=== PATIENT | male | born 1935 | race Caucasian/White ===

== ENCOUNTER → 2017-04-06 | Day surgery (SDC) | payer OTHER, MEDICARE ==
[2017-03-28 11:07] VITALS: Ht 172.7 cm; Wt 79.5 kg
[~2017-04-06] VITALS: Ht 172.7 cm; Wt 79.5 kg
[~2017-04-06] MED LIST: ALLO100T PO; AMOX500C3 PO; ASPCH81X PO; ATOR10TA82 PO; FEXO1TAB49 PO; LEVE500T14 PO; LIDOCAINE HCL 2% 2 ML VIAL (20MG/ML) ONE; METO25TA56 PO; MISCTAB PO; MRLP17X PO; PROPOFOL IV EMULSION 10 MG/ML 20 ML VIAL IV ONE; PSYL58.636 PO; RANI150T3 PO; TIMO1SOL6 OPB
[2017-04-06 08:47] VITALS: TEMP 36.3
--- NOTE | 2017-04-06 09:15 | Endo History and Physical ---
History & Physical Date of Service: Apr 06, 2017. Chief Complaint: Hx of cirrhosis, Hx of colon polyp Referring Physician: Dr Martell History of Present Illness H/o cirrhosis - variceal screen H/o colon polyp - cscopy Past Medical History Arthritis, Cancer, High Cholesterol, Heart Disease, Hypertension, Liver Disease , Other Past Surgical History Hx Cardiac Surgery: Yes (AVR AND CABG X 2 VESSELS, HEART CATH/NO STENTS) Hx Internal Defibrillator: No Hx Pacemaker: No Hx Abdominal Surgery: No Hx of Implantable Prosthesis: No Hx Post-Op Nausea and Vomiting: No Hx Cancer Surgery: Yes (LEFT ORCHIECTOMY) Hx Thoracic Surgery: No Hx Orthopedic: No (LUMBAR FUSION L4-5) Hx Urinary Tract Surgery: No Family History None Social History Smoking Status: Former Smoker Hx Substance Use: No Hx Alcohol Use: No Allergies Coded Allergies: NO KNOWN DRUG ALLERGIES (Verified Allergy, Unknown, ., 04/06/17) POLLEN (Verified Allergy, Unknown, SNEEZING, 04/06/17) Current Medications Reported Home Medications Medications Dose Route/Sig Max Daily Dose Days Date Category Dose Instructions Keppra Xr (Levetiracetam) 500 Mg Tab 500 Mg PO BID 03/28/17 Reported Metamucil Fiber (Psyllium) 51.7 % Florian 1 Dose PO BID PRN 03/28/17 Reported Osteo Bi-Flex [facility] ([facility]) 1 Tab Tab 1 Tab PO BID 03/28/17 Reported WITH VITAMIN D Betimol 0.25% Oph (Timolol Hemihydrate 0.25% Oph) 0.25 % Michelle 1 Drop OPB BID 03/28/17 Reported Aspirin Chewable (Aspirin) 81 Mg Chew 81 Mg PO BID 03/28/17 Reported Makenna Allergy (Fexofenadine Hcl) 180 Mg Tab 1 Tab PO DAILY PRN 14 03/28/17 Reported Amoxil (Amoxicillin) 500 Mg Cap 500 Mg PO DIRECTED PRN 03/28/17 Reported Miralax (Polyethylene) 17 Gm Pow 1 Dose PO DAILY PRN 03/28/17 Reported Zantac (Ranitidine HCl) 150 Mg Tab 150 Mg PO DAILY PRN 03/28/17 Reported Zyloprim (Allopurinol) 100 Mg Tab 100 Mg PO BID 03/28/17 Reported Lopressor (Metoprolol Tartrate) 25 Mg Tab 12.5 Mg PO BID 02/17/15 Reported Lipitor (Atorvastatin Calcium) 10 Mg Tab 10 Mg PO QAM 12/04/14 Reported Vital Signs Weight (Kilograms): 79.55 Height (Feet): 5 Height (Inches): 8 Date Time Temp Pulse Resp B/P (MAP) Pulse Ox O2 Delivery O2 Flow Rate FiO2 04/06/17 08:47 36.3 65 20 156/86 (109) 65 Room Air Physical Exam General Appearance: no apparent distress Respiratory/Chest: Auscultation: breath sounds normal Cardiovascular: Heart Auscultation: RRR Abdomen: Inspection & Palpation: soft Assessment and Plan EGD, cscopy
--- NOTE | 2017-04-06 10:05 | GI REPORT ---
Procedure Date: 04/06/2017 8:52 AM Procedure: Upper GI endoscopy Indications: Cirrhosis rule out esophageal varices Medicines: See the Anesthesia note for documentation of the administered medications Complications: No immediate complications. Estimated Blood Loss: Estimated blood loss: none. Procedure: Pre-Anesthesia Assessment: - ASA Grade Assessment: III - A patient with severe systemic disease. After obtaining informed consent, the endoscope was passed under direct vision. Throughout the procedure, the patient's blood pressure, pulse, and oxygen saturations were monitored continuously. The scope was introduced through the mouth, and advanced to the second part of duodenum. The upper GI endoscopy was accomplished without difficulty. The patient tolerated the procedure well. Findings: The examined esophagus was normal. Mosaic pattern to mucosa in body and fundus of stomach without bleeding or bulging red spots, consistent with mild portal gastropathy. The antrum was normal. There was moderate patchy erythema in the duodenal bulb, consistent with duodenitis. The remainder of the duodenum was normal. Impression: Mild portal gastropathy, otherwise normal exam. Recommendation: - Discharge patient to home. Ciera Ambrocio M.D. Ciera Ambrocio MD 04/06/2017 10:05:15 AM This report has been signed electronically. Note Initiated On: 04/06/2017 8:52 AM I attest to the content of the Intraoperative Record and orders documented therein, exceptions below
--- NOTE | 2017-04-06 10:07 | GI REPORT ---
Procedure Date: 04/06/2017 9:28 AM Procedure: Colonoscopy Indications: High risk colon cancer surveillance: Personal history of colonic polyps Medicines: See the Anesthesia note for documentation of the administered medications Complications: No immediate complications. Estimated Blood Loss: Estimated blood loss: none. Procedure: Pre-Anesthesia Assessment: - ASA Grade Assessment: III - A patient with severe systemic disease. After I obtained informed consent, the scope was passed under direct vision. Throughout the procedure, the patient's blood pressure, pulse, and oxygen saturations were monitored continuously. The scope was introduced through the anus and advanced to the cecum, identified by appendiceal orifice and ileocecal valve. The colonoscopy was performed without difficulty. The patient tolerated the procedure well. The quality of the bowel preparation was good. Findings: The perianal and digital rectal examinations were normal. Multiple small and large-mouthed diverticula were found in the sigmoid colon. A 4 mm polyp was found in the sigmoid colon. The polyp was sessile. The polyp was removed with a cold snare. Resection and retrieval were complete. The exam was otherwise without abnormality. Impression: - Diverticulosis in the sigmoid colon. - One 4 mm polyp in the sigmoid colon, removed with a cold snare. Resected and retrieved. - The examination was otherwise normal. Recommendation: - Discharge patient to home. Given age, would not pursue further CRC screening. Ciera Ambrocio M.D. Ciera Ambrocio MD 04/06/2017 10:06:58 AM This report has been signed electronically. Note Initiated On: 04/06/2017 9:28 AM I attest to the content of the Intraoperative Record and orders documented therein, exceptions below
--- NOTE | 2017-04-06 10:12 | Discharge Instructions ---
Endoscopy Patient Instructions Date / Procedure(s) Performed Apr 06, 2017. Colonoscopy, EGD Allergy Information Coded Allergies: NO KNOWN DRUG ALLERGIES (Verified Allergy, Unknown, ., 04/06/17) POLLEN (Verified Allergy, Unknown, SNEEZING, 04/06/17) Discharge Date / Findings Apr 06, 2017. Portal gastropathy Diverticulosis, sigmoid polyp Provider Instructions Activity Restrictions - No exercising or heavy lifting for 24 hours. - Do not drink alcohol the day of the procedure. - Do not drive a car or operate machinery until the day after the procedure. - Do not make any important decisions or sign important papers in 24 hours after the procedure. Following Day: - Return to full activity which may include returning to work/school. Diet Start your diet with liquids and light foods (jello, soup, juice, toast). Then eat your usual diet if not nauseated. Treatment For Common After Affects For mild abdominal pain, bloating, or excessive gas: - Rest - Eat lightly - Lie on right side Follow-Up Information Follow-up with Dr Martell as scheduled Anesthesia Information What You Should Know You have had a procedure that required some medicine to reduce anxiety and discomfort. This treatment is called moderate sedation. After receiving the treatment, you may be sleepy, but you will be able to breathe on your own. The effects of the treatment may last for several hours. Follow these instructions along with Activity/Diet recommendations noted above: * Do NOT do anything where dizziness or clumsiness would be dangerous. * Rest quietly at home today, then you can be up and about tomorrow. * Have a responsible person stay with you the rest of today. * You may have had an I.V. today. If so, you may take the dressing off later today. Recommendations Call your doctor if: * Trouble breathing * Continuous vomiting for more than 24 hours * Temperature above 101 degrees * Severe abdominal pain or bloating * Pain not relieved by pain medicine ordered * There is increased drainage or redness from any incision * A large amount of rectal bleeding greater than 2-3 tablespoons. (If you had a polyp/s removed or have hemorrhoids, a small amount of blood - from the rectum is to be expected.) * You have any unanswered questions or concerns. IN THE EVENT OF A SERIOUS EMERGENCY, GO TO THE NEAREST EMERGENCY ROOM Your discharge instructions were prepared by provider Ciera Arboleda. Patient Instructions Signature Page Kian Gregory Patient (or Guardian) Signature/Date: I have read and understand the instructions given to me by my caregivers. Caregiver/RN/Doctor Signature/Date: The above-named patient and/or guardian has received patient instructions on this date. + Original Patient Signature Page (only) stays with chart. Please make copy for patient.
--- NOTE | 2017-04-06 10:15 | Anesthesiology Progress Note ---
Anesthesia Post Op Note Date & Time Apr 06, 2017 at 10:15 Vital Signs Vital Signs Past 12 Hours Date Time Temp Pulse Resp B/P (MAP) Pulse Ox O2 Delivery O2 Flow Rate FiO2 04/06/17 10:09 63 16 137/79 (98) 100 Room Air 04/06/17 09:54 62 16 125/76 (92) 100 Room Air 04/06/17 08:47 36.3 65 20 156/86 (109) 65 Room Air Notes Mental Status: alert / awake / arousable, participated in evaluation Pt Amnestic to Procedure: Yes Nausea / Vomiting: adequately controlled Pain: adequately controlled Airway Patency, RR, SpO2: stable & adequate BP & HR: stable & adequate Hydration State: stable & adequate Anesthetic Complications: no major complications apparent
[2017-04-06 10:24] VITALS: BP 132/84; PULSE 57; O2SAT 98
== END | disposition home or self-care (01) ==
LOC: C.GI 08:10
PROVIDERS: ATTEND Internal Medicine Gastroenterology
DX: Z12.11 Encounter for screening for malignant neoplasm of colon (principal); D12.5 Benign neoplasm of sigmoid colon; K57.30 Diverticulosis of large intestine without perforation or abscess without bleeding; Z86.010 Personal history of colon polyps; K74.60 Unspecified cirrhosis of liver; M19.90 Unspecified osteoarthritis, unspecified site; E78.00 Pure hypercholesterolemia, unspecified; I10 Essential (primary) hypertension; Z95.1 Presence of aortocoronary bypass graft; Z87.891 Personal history of nicotine dependence; Z79.899 Other long term (current) drug therapy; Z79.82 Long term (current) use of aspirin

== ENCOUNTER 2018-06-04 23:58 | Inpatient (IN) ==
[2018-06-05] MEDS ORDERED: SODIUM CHLORIDE 0.9% 1000ML 1,000 ML IV ONE (00:15)
[2018-06-05] MEDS ORDERED: ONDANSETRON INJ 2 MG/ML 2 ML VIAL IV STA (00:15)
[2018-06-05] MEDS ORDERED: MoRPHine SULFATE 10 MG/ML CARP/VIAL IV STA (00:15)
[2018-06-05 00:43] LABS: Basophils # (auto) 0.03 K/uL (0-0.2); Basophils % (auto) 0.4 %; Eosinophils # (auto) 0.09 K/uL (0-0.5); Eosinophils % (auto) 1.1 %; Hematocrit (blood only) 44.3 % (42-52); Hemoglobin 15.7 g/dL (14.0-18.0); Immature Granulocytes # (auto) 0.01 K/uL (0.00-0.02); Immature Granulocytes % (auto) 0.1 %; Lymphocytes # (auto) 0.97 K/uL (1.2-3.4); Lymphocytes % (auto) 11.7 %; Mean Corpuscular Hgb Conc 35.4 g/dL (32-36); Mean Corpuscular Volume 97.4 fL (80-100); Mean Platelet Volume 10.5 fL (7.4-10.4); Monocytes % (auto) 7.2 %; Neutrophils % (auto) 79.5 %; Platelet Count 125 K/uL (130-400); RDW Coefficient of Variation 13.2 % (11.5-14.5); RDW Standard Deviation 46.5 fL (36.4-46.3); Red Blood Count 4.55 M/uL (4.7-6.1)
[2018-06-05 00:59] LABS: Albumin Level 4.4 gm/dl (3.4-5.0); BUN Creatinine Ratio 17.2 (10-20); Bilirubin Direct 0.2 mg/dl (0-0.2); Calcium 9.6 mg/dl (8.5-10.1); Creatinine Clr Calc Pharmacy 37.7 ml/min; Est GFR (African American) 51.9; Est GFR (Non-African American) 44.8
[2018-06-05 01:02] LABS: Total Protein 8.4 gm/dl (6.4-8.2)
--- NOTE | 2018-06-05 01:54 | Emergency Department Note ---
Entered by Sushant Knowles acting as a scribe for ED Provider Note CC: Generalized abdominal pain HPI: 82 y/o male arrives for evaluation of constant abdominal pain beginning a few days ago via triage. The patient states he has a history of several bowel obstructions, and he does not know what has caused them. He reports he experienced diarrhea last week that has resolved to small bowel movements. The patient notes he vomited this evening and he now has moderate pain to his abdomen. He states his pain is generalized. The patient reports he was not able to eat a lot today. He notes a history of hemochromatosis and follows up with Dr. Ambrocio. The patient states his PCP is Dr. Martell. He denies chest pain, SOB, LOC, falls, injuries, taking medication for his symptoms, and leg swelling. ROS: See above HPI for pertinent positives & negatives. A total of 10 systems reviewed and were otherwise negative. Past Medical History:, Hemochromatosis, Bowel obstruction, GERD, CAD, HTN Past Surgical History: CABGx2, orchiectomy, Family History: Noncontributory Social History: Former smoker Home Medications: Aspirin, Keppra, Zantac Allergies: NKDA Physical: Vitals: Normal Exam: GENERAL: Patient is uncomfortable and nauseous appearing and in moderate distress. EYES: No scleral icterus, unremarkable pupils. ENT: Mucous membranes moist, no nasal congestion. NECK: No masses appreciated, no meningismus, trachea is midline. RESPIRATORY: No dyspnea. Clear to auscultation and equal bilaterally. No wheeze, no rhonchi. CARDIOVASCULAR: Regular rate and rhythm. No murmurs, rubs, gallops appreciated. GASTROINTESTINAL: Abdomen soft, distended, tenderness to palpation throughout with no signs of peritonitis appreciated. Bowel sounds hyperactive in the LLQ. No masses appreciated. BACK: No midline tenderness, no CVA tenderness EXTREMITIES: Normal motion all extremities, no cyanosis, no edema. NEUROLOGIC: Alert and oriented, no acute motor or sensory deficits, no focal weakness, cranial nerves grossly intact. SKIN: No rash, no jaundice, no diaphoresis. ED Course: 0011: Past medical records reviewed. The patient was evaluated in room A11B, and a complete history and physical examination were performed. 0130: I reevaluated the patient. He is still nauseous. I paged Dr. Man, General Surgery. 0141: I discussed the patient's case with Dr. Man, General Surgery. He agreed with the placement of an EG tub and a medical admit. 0150: I reviewed the patient's case with Dr. Escalante, [facility] Hospitalist. He will evaluate the patient for further management. Prior Medical Record, Triage/Nursing Notes, Medications reviewed by Me Labs reviewed and remarkable for renal insufficiency and minor thrombocytopenia Vital Signs reviewed and remarkable for wnl Imaging: [facility] Radiologist interpretation reviewed by me: "CT ABDOMEN & PELVIS Without Contrast: Compared to 05/24/12 Small bowel obstruction with a transition point in the RLQ. Cholelithiasis. Distended urinary bladder. No hydronephrosis. Unremarkable appendix. Aortic valve replacement with ascending segment ectasia Radiologist: Charanjit Recinos M.D." EKG: none Consults: Dr. Man, General Surgery; Dr. Escalante, [facility] Hospitalist. Blood pressure: Unremarkable Disposition: Hospitalization Differentials: Differential diagnoses includes but is not limited to gastritis, peptic ulcer disease, GERD, gallbladder disease, pancreatitis, small bowel obstruction, acute coronary syndrome, pericarditis, ischemic bowel, irritable bowel disease, irritable bowel syndrome, appendicitis, diverticulitis, malignancy, hernia, urinary tract infection, torsion, perforation, trauma, infe ctious. Medical Decision Making: Pleasant 82 yr old male with worsening abdominal pain and no normal BM in last few days. Now with vomiting and worsening abdominal discomfort. Exam and history consistent with obstructions. No peritonitis by serial exams. CT with obstruction noted and NG tube placed with improvement. Gen Surg on board with plan to bring in to medicine for further monitoring/treatment. Lactic wnl and he does not exam like ischemic bowel. Impression: Small Bowel Obstruction Rupert Montejo MD The scribe's documentation has been prepared under my direction and personally reviewed by me in its entirety. I confirm that the note above accurately reflects all work, treatment, procedures, and medical decision making performed by me. 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 " Hemochromatosis (Chronic Unknown) GERD (gastroesophageal reflux disease) (Chronic) Aortic stenosis (Resolved) "s/p AVR 12/2014" CAD (coronary artery disease) (Chronic) "s/p CABG x 2" Dyslipidemia (Chronic) HTN (hypertension) (Chronic) CKD (chronic kidney disease) stage 3, GFR 30-59 ml/min (Chronic) Surgical History History of coronary artery bypass graft x 2 (Resolved) "12/2014" History of orchiectomy, unilateral (Resolved) "L side at age 36 secondary to cancer " Family History Other Family history non-contributory Social History Feels Safe at Home: Yes Smoking Status: Former smoker Results & Data Vital Signs Vital Signs - 24 hr 06/05/18 00:04 Sepsis Recent Fever Within 48 Hours No Sepsis New/Unexplained Change in Mental Status No Sepsis Action Taken by Nursing No Action Required Pulse Rate 77 Pulse Rhythm Regular Pulse Strength Normal Respiratory Rate 19 Respiratory Effort / Characteristics Non-Labored Spontaneous Respiratory Depth Normal Respiratory Pattern Regular Blood Pressure 113/75 Blood Pressure Mean 87 Blood Pressure Position Sitting Pulse Oximetry 98 Oxygen Delivery Method Room Air Home Medications Current Medication List: was personally reviewed by me Laboratory Data Attestation: I reviewed the patient's lab results. Result diagrams: 06/05/18 00:30 06/05/18 00:30 Lab Results 06/05/18 06/05/18 06/05/18 Range/Units 00:30 00:30 00:30 WBC 8.30 (4.8-10.8) K/uL RBC 4.55 L (4.7-6.1) M/uL Hgb 15.7 (14.0-18.0) g/dL Hct 44.3 (42-52) % MCV 97.4 (80-100) fL MCH 34.5 H (25-34) pg MCHC 35.4 (32-36) g/dL RDW Std Deviation 46.5 H (36.4-46.3) fL RDW Coeff of Florin 13.2 (11.5-14.5) % Plt Count 125 L (130-400) K/uL MPV 10.5 H (7.4-10.4) fL Immature Gran % (Auto) 0.1 % Neut % (Auto) 79.5 % Lymph % (Auto) 11.7 % Kittson % (Auto) 7.2 % Eos % (Auto) 1.1 % Baso % (Auto) 0.4 % Immature Gran # (Auto) 0.01 (0.00-0.02) K/uL Neut # (Auto) 6.60 H (1.4-6.5) K/uL Lymph # (Auto) 0.97 L (1.2-3.4) K/uL Kittson # (Auto) 0.60 H (0.11-0.59) K/uL Eos # (Auto) 0.09 (0-0.5) K/uL Baso # (Auto) 0.03 (0-0.2) K/uL Sodium 137 (136-145) mmol/L Potassium 4.0 (3.5-5.1) mmol/L Chloride 101 (98-107) mmol/L Carbon Dioxide 30 (21-32) mmol/L Anion Gap 6.0 (3-11) BUN 25 H (7-18) mg/dl Creatinine 1.46 H (0.6-1.4) mg/dl Est Cr Clr Drug Dosing 37.7 ml/min Est GFR ( Amer) 51.9 Est GFR (Non-Af Amer) 44.8 BUN/Creatinine Ratio 17.2 (10-20) Glucose 169 H (70-99) mg/dl Lactate 1.7 (0.4-2.0) mmol/L Calcium 9.6 (8.5-10.1) mg/dl Total Bilirubin 1.0 (0.2-1) mg/dl Direct Bilirubin 0.2 (0-0.2) mg/dl AST 24 (15-37) U/L ALT 30 (12-78) U/L Alkaline Phosphatase 95 (45-117) U/L Total Protein 8.4 H (6.4-8.2) gm/dl Albumin 4.4 (3.4-5.0) gm/dl Lipase 47 L (73-393) U/L Administered Medications Discontinued Medications Sodium Chloride (Nss 1000ml) 1,000 mls @ 999 mls/hr IV .Q1H1M ONE Stop: 06/05/18 01:15 Last Infusion: 03/20/19 01:57 Dose: 0 mls/hr Documented by: [id number] Admin: 06/05/18 00:28 Dose: 999 mls/hr Documented by: [id number] Morphine Sulfate (Morphine Sulfate) 6 mg IV NOW STA Stop: 06/05/18 00:16 Last Admin: 06/05/18 00:28 Dose: 6 mg Documented by: [id number] Ondansetron HCl (Zofran) 4 mg IV NOW STA Stop: 06/05/18 00:16 Last Admin: 06/05/18 00:27 Dose: 4 mg Documented by: [id number] Blood Pressure Blood Pressure Findings: Normal blood pressure Blood Pressure Disposition: did not require urgent referral Discharge Plan Visit Data Chief Complaint: Constipation Stated Complaint: BOWL OBS ED Provider: Rupert Montejo Discharge Problem: Small bowel obstruction Patient Disposition: Being Evaluated by Hospitalist Forms Stand Alone Forms: My [facility] Prescriptions Prescriptions: No Action atorvastatin 10 mg tablet 10 mg PO DAILY RF: 0 levetiracetam 500 mg tablet 500 mg PO BID RF: 0 allopurinol 100 mg tablet 100 mg PO BID RF: 0 aspirin 81 mg Tablet,Delayed Release (Dr/Ec) 81 mg PO BID RF: 0 metoprolol tartrate 25 mg tablet 12.5 mg PO Q12 RF: 0 timolol maleate 0.25 % drops 1 drp OPB BID RF: 0 ranitidine HCl 150 mg tablet 150 mg PO DAILY RF: 0 amoxicillin 500 mg capsule 2,000 mg PO UD PRN (Reason: Prophylaxis) RF: 0 fexofenadine [Makenna Allergy] 180 mg Tablet 180 mg PO DAILY RF: 0 polyethylene glycol 3350 [Miralax] 17 gram/dose Powder 17 g PO DAILY PRN (Reason: Constipation) RF: 0 glucosamine-chondroitin [Osteo Bi-Flex] 250-200 mg Tablet 2 tab PO DAILY RF: 0 Referrals Referrals: Jim Martell [Primary Care Provider] - The scribe's documentation has been prepared under my direction and personally reviewed by me in its entirety. I confirm that the note above accurately reflects all work, treatment, procedures, and medical decision making performed by me.
[2018-06-05] MEDS ORDERED: ACETAMINOPHEN 325 MG TAB PO PRN (05:14)
[2018-06-05] MEDS ORDERED: HYDROmorphone INJ 0.5 MG/0.5 ML SYR IV PRN (05:14)
[2018-06-05] MEDS ORDERED: ONDANSETRON INJ 2 MG/ML 2 ML VIAL IV PRN (05:14)
[2018-06-05] MEDS: D5W AND NSS 1,000 ML IV SCH ×3 (05:40→21:42)
--- NOTE | 2018-06-05 06:19 | History and Physical Report ---
DATE OF ADMISSION: 06/05/2018 CHIEF COMPLAINT: Abdominal pain, nausea and vomiting. HISTORY OF PRESENT ILLNESS: This is an 82-year-old male with past medical history significant for hemochromatosis s/p phlebectomy about 6 months ago, hyperlipidemia, hyperuricemia, aortic wall stenosis, CAD, hypertension, cirrhosis of liver, chronic kidney disease stage III, seizure disorder, chronic back pain, status post bioprosthetic aortic valve replacement, presents with abdominal pain, nausea started since last evening with several episodes of vomiting. Pain is moderate to severe in nature, no radiation, had a small bowel movement last evening No blood in the stools. Normal bladder movements. No burning micturition or hematuria. No chest pain, no shortness of breath, no cough, no fever, no chills, no headaches, no blurred vision, no runny nose, no sore throat. Lives with his . Ambulates okay. History of multiple small-bowel obstructions in the past. ALLERGIES: POLLEN. PAST MEDICAL HISTORY: As mentioned above. PAST SURGICAL HISTORY: CABG, colonoscopy, EGD with biopsies, endoscopic ultrasound, back surgery, sigmoidoscopy. MEDICATIONS: The patient is on amoxicillin prior to dental work, Keppra 500 mg p.o. b.i.d., Lopressor 12.5 mg p.o. b.i.d., Lipitor 10 mg p.o. daily, allopurinol 100 mg p.o. b.i.d., Zantac 150 mg p.o. b.i.d. as needed, timolol 0.25% instill 1 drop both eyes b.i.d., MiraLax 17 g daily, Makenna 180 mg p.o. daily p.r.n., aspirin 81 mg p.o. b.i.d., Osteo Bi-Flex 1 tablet b.i.d. FAMILY HISTORY: Significant for father had lung cancer. Mother had ovarian cancer. SOCIAL HISTORY: and lives with his . Quit smoking in 1966. Smoked about 1 pack a day for 15 years. No alcohol use. No drug use. REVIEW OF SYMPTOMS: As per HPI. Rest of review of symptoms negative. PHYSICAL EXAMINATION: GENERAL: The patient is of moderate built, not in acute distress. VITAL SIGNS: Temperature is afebrile, pulse 77, respiratory 19, blood pressure 113/75, oxygen 98% on room air. HEENT: No pallor, no icterus. Pupils equal, round, and reactive to light. NECK: No JVD, no neck mass, no carotid bruit. CARDIOVASCULAR: S1, S2 heard, regular rate and rhythm, no murmur, no gallop. RESPIRATORY SYSTEM: Normal AP diameter. No accessory muscle use. No wheezing, no crackles. ABDOMEN: Soft, bowel sounds absent. Nontender. No distention. CENTRAL NERVOUS SYSTEM: Cranial nerves II-XII grossly intact. Nonfocal. EXTREMITIES: No edema, no erythema. LABS: WBC 8.3, hemoglobin 15.7, hematocrit 44.3, platelets 125. Sodium 137, potassium 4, chloride 101, bicarbonate 30, BUN 25, creatinine 1.4, serum glucose 169. Lactate 1.7, calcium 9.6, total bilirubin 1, direct bilirubin 0.2, AST 74, ALT 30, alkaline phosphatase 95, lipase 47. CT of the abdomen and pelvis, unofficial report small-bowel obstruction. ASSESSMENT AND PLAN: An 82-year-old male who presents with a small-bowel obstruction. 1. Small bowel obstruction. History of frequent small bowel obstruction in the past. We will keep him n.p.o. and nasogastric tube was placed in ER which will be continued. IV pain medication and IV antiemetics p.r.n., IV fluids, consult surgery for further recommendations. 2. History of gastroesophageal reflux disease. We will place him on IV Protonix for now. 3. History of coronary artery disease and aspirin, statin and Lopressor, which we will continue for now. Currently asymptomatic. 4. History of seizure disorder. We will place him on IV Keppra. 5. Hyperlipidemia, on statin. 6. Gout. On allopurinol. 6. Chronic kidney disease stage III, baseline creatinine of 1.3 to 1.5, presents with creatinine 1.4. Follow the labs. 7. Hypertension. On Lopressor. Monitor the blood pressure. 8 History of diastolic congestive heart failure, not on any diuretics. getting fluids. We will monitor for any volume overload. 9. Deep vein thrombosis prophylaxis, sequential compression devices for now. DISPOSITION: Closely monitor in the medical floor. Level I full code. MTDD
--- NOTE | 2018-06-05 06:47 | Progress Note ---
Date of Service June 05, 2018 Assessment & Plan (1) Small bowel obstruction: very stable- no acute surgical intrvention needed at this point- probably has scar tissue from radiation therapy for h/o testicular ca consider CT w/ contrast via NG depending on progress Subjective awake,alert- min pain some normal looking NG output Physical Exam Vital Signs (Past 24 Hours): Last Vital Signs Temp 36.5 C 06/05/18 05:00 Pulse 76 06/05/18 05:00 Resp 16 06/05/18 05:00 BP 153/84 H 06/05/18 05:00 Pulse Ox 95 06/05/18 05:00 abd- soft, min tenderness- some decreased bowel sounds
[2018-06-05 07:24] LABS: BUN Creatinine Ratio 19.5 (10-20); Calcium 8.7 mg/dl (8.5-10.1); Creatinine Clr Calc Pharmacy 40.8 ml/min; Est GFR (African American) 57.1; Est GFR (Non-African American) 49.2; Potassium 4.3 mmol/L (3.5-5.1)
--- NOTE | 2018-06-05 07:46 | CT Scan Report ---
ABDOMEN AND PELVIS CT WITHOUT CONTRAST CT DOSE: 1035.10 mGy.cm HISTORY: abdominal distension, pain, concern bowel obstruct TECHNIQUE: Multiaxial CT images of the abdomen and pelvis were performed without contrast. A dose lo wering technique was utilized adhering to the principles of ALARA. COMPARISON STUDY: Abdomen and pelvis CT 05/24/2012. FINDINGS: A few groundglass densities at the lung bases likely represent mild dependent change. 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 Mild aneurysmal dilatation of the ascendi ng thoracic aorta measuring 4.1 cm in diameter. No pneumoperitoneum. No pneumatosis. Posterior decomp ression and fusion within the lower lumbar spine. The unenhanced liver, spleen, adrenal glands, pancr eas, and right kidney are unremarkable. No hydronephrosis. A few small gallstones. A 1.3 cm exophytic hypodense lesion within the upper pole the left kidney. This is incompletely characterize on this no ncontrast study. The bladder is mildly distended. A few colonic diverticula. No evidence for divertic ulitis. Moderate well-formed stool seen within the distal colon. Normal appendix. Multiple dilated ga s and fluid-filled loops of proximal to mid small bowel with a transition point located within the ri ght lower quadrant on image 59. This is consistent with a small bowel obstruction. The small bowel is distended up to 3.6 cm. A transition point is likely located at the mid to distal ileum. IMPRESSION: 1. Small bowel obstruction with the transition point located within the right lower quadrant. 2. Cholelithiasis. 3. Distended bladder. 4. Mild aneurysmal dilatation of the ascending thoracic aorta measuring up to 4.1 cm in diameter. 5. Additional findings as described above. Electronically signed by: Jonny Johnson M.D. 06/05/2018 7:45 AM
[2018-06-05] MEDS: TIMOLOL MALEATE 0.25% OP SOLN 5 ML BTL OPB SCH ×2 (08:50→20:23)
[2018-06-05] MEDS: FEXOFENADINE HCL 180 MG TAB PO SCH (08:51)
[2018-06-05] MEDS: METOPROLOL TARTRATE 25 MG TAB PO SCH ×2 (08:51→20:23)
[2018-06-05] MEDS: ASPIRIN 81 MG ECTAB PO SCH ×2 (08:51→20:23)
[2018-06-05] MEDS: ATORVASTATIN 10 MG TAB PO SCH (08:51)
[2018-06-05] MEDS: ALLOPURINOL 100 MG TAB PO SCH ×2 (08:51→20:22)
[2018-06-05 13:24] LABS: Appearance Urine Clear (Clear); Bilirubin Urine Negative (Negative); Blood Urine Negative (Negative); Color Urine Yellow; Glucose Urine UA Negative (Negative); Ketones Urine Negative (Negative); Leukocyte Esterase Urine Negative (Negative); Nitrite Urine Negative (Negative); Protein Urine Negative (Negative); Specific Gravity Urine 1.022 (1.000-1.030); Urobilinogen Urine Negative (Negative)
--- NOTE | 2018-06-05 18:39 | Hospitalist Progress Note ---
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 (3) GERD (gastroesophageal reflux disease): cont PPI Subjective NG tube has minimum drainage no complain of abdominal pain or nausea appreciate input from surgery conservative management with supportive care -NG sunction /IVF Physical Exam Vital Signs (Past 24 Hours): Last Vital Signs Temp 36.4 C L 06/05/18 16:15 Pulse 69 06/05/18 16:15 Resp 18 06/05/18 16:15 BP 117/68 06/05/18 16:15 Pulse Ox 96 06/05/18 16:15 Physical Exam: GENERAL: No sign of distress, HEENT: Sclera nonicteric, pink-purple bilateral equal reactive to light extraocular muscle intact Normal oral mucosa, neck: No JVD, no thyromegaly, trachea midline Lungs: Clear to auscultate, no wheeze or rales Cardiovascular: Regular S1 and S2, no murmur or gallop, no JVD, no lower extremity edema Abdomen: Soft, nontender, bowel sounds active, no hepatosplenomegaly Extremities: No rash or deformity, normal joint, Neuro: No focal neurological deficit, no dysarthria, no facial droop Psych: Alert awake oriented x3: Euthymic Skin: No rash LYMPH NODES: No cervical lymphadenopathy
[2018-06-06] MEDS: D5W AND NSS 1,000 ML IV SCH ×2 (05:20→13:45)
[2018-06-06 06:22] LABS: Hematocrit (blood only) 37.1 % (42-52); Hemoglobin 12.4 g/dL (14.0-18.0); Mean Corpuscular Hgb Conc 33.4 g/dL (32-36); Mean Corpuscular Volume 100.3 fL (80-100); Mean Platelet Volume 10.2 fL (7.4-10.4); Platelet Count 92 K/uL (130-400); RDW Coefficient of Variation 13.4 % (11.5-14.5); RDW Standard Deviation 48.8 fL (36.4-46.3); White Blood Count 4.18 K/uL (4.8-10.8)
[2018-06-06 06:23] LABS: Basophils # (auto) 0.01 K/uL (0-0.2); Basophils % (auto) 0.2 %; Eosinophils # (auto) 0.08 K/uL (0-0.5); Eosinophils % (auto) 1.9 %; Immature Granulocytes # (auto) 0.01 K/uL (0.00-0.02); Immature Granulocytes % (auto) 0.2 %; Lymphocytes # (auto) 0.62 K/uL (1.2-3.4); Lymphocytes % (auto) 14.8 %; Monocytes # (auto) 0.59 K/uL (0.11-0.59); Monocytes % (auto) 14.1 %; Neutrophils # (auto) 2.87 K/uL (1.4-6.5); Neutrophils % (auto) 68.8 %; Platelet Estimate Decreased (Normal); RBC Morphology Unremarkable
[2018-06-06 06:24] LABS: BUN Creatinine Ratio 18.7 (10-20); Calcium 7.8 mg/dl (8.5-10.1); Creatinine Clr Calc Pharmacy 46.7 ml/min; Est GFR (African American) 67.1; Est GFR (Non-African American) 57.9; Magnesium 1.6 mg/dl (1.8-2.4); Potassium 3.7 mmol/L (3.5-5.1)
[2018-06-06] MEDS: TIMOLOL MALEATE 0.25% OP SOLN 5 ML BTL OPB SCH ×2 (08:47→21:39)
[2018-06-06] MEDS: METOPROLOL TARTRATE 25 MG TAB PO SCH ×2 (08:47→21:37)
[2018-06-06] MEDS: ATORVASTATIN 10 MG TAB PO SCH (08:47)
[2018-06-06] MEDS: ASPIRIN 81 MG ECTAB PO SCH ×2 (08:47→21:37)
[2018-06-06] MEDS: ALLOPURINOL 100 MG TAB PO SCH ×2 (08:47→21:37)
[2018-06-06] MEDS: FEXOFENADINE HCL 180 MG TAB PO SCH (08:48)
--- NOTE | 2018-06-06 09:16 | XRay Report ---
KUB HISTORY: Follow-up Small Bowel Obstruction COMPARISON: Abdomen and pelvis CT 06/05/2018. FINDINGS: Nasogastric tube turns in the proximal stomach. The fenestrated line is at the gastroesopha geal junction. This should be advanced by approximately 5 cm. L4-L5 posterior fusion is noted. Slight decompression of the mildly dilated gas-filled loops of small bowel to the upper abdomen. There is g as and stool remaining within the colon. No renal calculi. No ureteral calculi. No pneumoperitoneum or pneumatosis. IMPRESSION: Slight improvement in the partial small bowel obstruction pattern. However, this could be due to deco mpression from the interval placement of a nasogastric tube. The nasogastric tube terminates in the p roximal stomach and should be advanced by approximately 5 cm. Electronically signed by: Jonny Johnson M.D. 06/06/2018 9:15 AM
--- NOTE | 2018-06-06 09:22 | Surgery Progress Note ---
Date of Service June 06, 2018 Assessment & Plan (1) Small bowel obstruction: 06/06/2018 Pt seen and examined with Dr. Caceres. No need for surgical intervention at this time. NG tube in place. Pt has started passing flatus. Denies BM, unable to void on own. Will repeat KUB this AM, bladder scan (over 700 mL of urine), will place fajardo catheter. UA yesterday ok. Continue NG tube. 06/05/2018 very stable- no acute surgical intrvention needed at this point- probably has scar tissue from radiation therapy for h/o testicular ca consider CT w/ contrast via NG depending on progress Subjective Patient resting comfortably in bed, NG tube in place. Reports that he did start passing flatus. Denies BM. Physical Exam Vital Signs (Past 24 Hours): Last Vital Signs Temp 37 C 06/05/18 23:15 Pulse 73 06/06/18 07:50 Resp 16 06/06/18 07:50 BP 136/76 06/06/18 07:50 Pulse Ox 90 06/06/18 07:50 Gastrointestinal (Abdomen): Inspection/Auscultation: + abdomen distended (improving. )
--- NOTE | 2018-06-06 17:37 | Hospitalist Progress Note ---
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 Nancy Helm urology and Fredrick Boo, Galloway was discontinued after voiding trial Will discharge patient with Galloway catheter-be changed to leg bag during discharge Follow-up with urology Dr. Helm in office for voiding trial Present on Admission?: No (4) GERD (gastroesophageal reflux disease): cont PPI CODE STATUS: Full code Disposition: Possible discharge home tomorrow, will need home health visiting nurse referral for Galloway catheter management Subjective Tolerating clear diet well, ambulating in hallway, no complaint of abdominal pain, no nausea, able to have small bowel movements Physical Exam Vital Signs (Past 24 Hours): Last Vital Signs Temp 36.8 C 06/06/18 15:22 Pulse 80 06/06/18 15:22 Resp 17 06/06/18 15:22 BP 132/75 06/06/18 15:22 Pulse Ox 97 06/06/18 15:22 Physical Exam: GENERAL: No sign of distress, HEENT: Sclera nonicteric, pink-purple bilateral equal reactive to light extraocular muscle intact Normal oral mucosa, neck: No JVD, no thyromegaly, trachea midline Lungs: Clear to auscultate, no wheeze or rales Cardiovascular: Regular S1 and S2, no murmur or gallop, no JVD, no lower extremity edema Abdomen: Soft, nontender, bowel sounds active, Extremities: No rash or deformity, normal joint, Neuro: No focal neurological deficit, no dysarthria, no facial droop Psych: Alert awake oriented x3: Euthymic Skin: No rash LYMPH NODES: No cervical lymphadenopathy Gastrointestinal (Abdomen): Inspection/Auscultation: + abdomen distended (improving. ) (1) Malignant tumor of testis Descendance of testis: unspecified Laterality: unspecified laterality Qualified Code(s): C62.90 - Malignant neoplasm of unspecified testis, unspecified whether descended or undescended (2) GERD (gastroesophageal reflux disease) Esophagitis presence: esophagitis presence not specified Qualified Code(s): K21.9 - Gastro-esophageal reflux disease without esophagitis
[2018-06-06] MEDS: TAMSULOSIN HCL 0.4 MG CAP PO SCH (21:37)
--- NOTE | 2018-06-07 07:53 | Surgery Progress Note ---
Date of Service June 07, 2018 Assessment & Plan (1) Small bowel obstruction: improving, seen with Dr. Caceres will recheck KUB begin advancing diet, possibly regular diet later today home with Barron fajardo Dr. covering weekend Subjective increasing flatus, no nausea, tolerating clears, has tana Physical Exam Vital Signs (Past 24 Hours): Last Vital Signs Temp 37.1 C 06/07/18 07:48 Pulse 81 06/07/18 07:48 Resp 18 06/07/18 07:48 BP 96/59 L 06/07/18 07:48 Pulse Ox 93 06/07/18 07:48 Gastrointestinal (Abdomen): Inspection/Auscultation: + abdomen distended (slightly LUQ) Percussion/Palpation: abdomen soft; abdomen nontender
[2018-06-07] MEDS: FEXOFENADINE HCL 180 MG TAB PO SCH (09:28)
[2018-06-07] MEDS: ASPIRIN 81 MG ECTAB PO SCH ×2 (09:29→20:19)
[2018-06-07] MEDS: ALLOPURINOL 100 MG TAB PO SCH ×2 (09:30→20:19)
[2018-06-07] MEDS: ATORVASTATIN 10 MG TAB PO SCH (09:30)
[2018-06-07] MEDS: METOPROLOL TARTRATE 25 MG TAB PO SCH ×2 (09:30→20:21)
[2018-06-07] MEDS: TIMOLOL MALEATE 0.25% OP SOLN 5 ML BTL OPB SCH ×2 (09:31→20:22)
--- NOTE | 2018-06-07 09:59 | XRay Report ---
KUB HISTORY: Follow-up study in a patient with small bowel obstruction. SBO COMPARISON: CT abdomen and pelvis 06/05/2018, KUB 06/06/2018 FINDINGS: Status post removal of the previously noted enteric tube. Moderate [place] formed stool is noted about the transverse colon. Decreased small bowel distention. The bowel gas pattern appears nonobstructive on today's study. No urolith identified. Sternotomy wires are partially imaged. No pneumatosis or pn eumoperitoneum. Previously noted cholelithiasis is better seen on comparison. Postoperative changes o f the lower lumbar spine. Degenerative changes of the spine, pelvis and hips. IMPRESSION: 1. Status post removal of the enteric tube. Decreased small bowel distention with bowel gas pattern a ppearing nonobstructed. 2. Moderate formed stool about the transverse colon. 3. No pneumatosis or pneumoperitoneum identified. Electronically signed by: Neftaly Gonzales M.D. 06/07/2018 9:58 AM
--- NOTE | 2018-06-07 18:16 | Hospitalist Progress Note ---
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 Nancy Helm urology and Fredrick Boo, Galloway was discontinued after voiding trial Will discharge patient with Galloway catheter-be changed to leg bag during discharge Follow-up with urology Dr. Helm in office for voiding trial (4) GERD (gastroesophageal reflux disease): cont PPI CODE STATUS: Full code Disposition: Possible discharge home tomorrow, will need home health visiting nurse referral for Galloway catheter management Subjective diet advanced tolerating well Physical Exam Vital Signs (Past 24 Hours): Last Vital Signs Temp 37.4 C 06/07/18 14:58 Pulse 80 06/07/18 14:58 Resp 17 06/07/18 14:58 BP 115/63 06/07/18 14:58 Pulse Ox 90 06/07/18 14:58 Gastrointestinal (Abdomen): Inspection/Auscultation: + abdomen distended (improving. ) (1) Malignant tumor of testis Descendance of testis: unspecified Laterality: unspecified laterality Qualified Code(s): C62.90 - Malignant neoplasm of unspecified testis, unspecified whether descended or undescended (2) GERD (gastroesophageal reflux disease) Esophagitis presence: esophagitis presence not specified Qualified Code(s): K21.9 - Gastro-esophageal reflux disease without esophagitis
[2018-06-07] MEDS ORDERED: BISACODYL 5 MG TABEC PO ONE (19:38)
[2018-06-07] MEDS: POLYETHYLENE (MIRALAX) 17 GM PACK PO SCH (20:19)
[2018-06-07] MEDS: TAMSULOSIN HCL 0.4 MG CAP PO SCH (20:19)
[2018-06-07] MEDS: levETIRAcetam 500 MG TAB PO SCH (20:19)
[2018-06-08] MEDS: FEXOFENADINE HCL 180 MG TAB PO SCH (09:13)
[2018-06-08] MEDS: TIMOLOL MALEATE 0.25% OP SOLN 5 ML BTL OPB SCH (09:13)
[2018-06-08] MEDS: ASPIRIN 81 MG ECTAB PO SCH (09:13)
[2018-06-08] MEDS: METOPROLOL TARTRATE 25 MG TAB PO SCH (09:14)
[2018-06-08] MEDS: ATORVASTATIN 10 MG TAB PO SCH (09:14)
[2018-06-08] MEDS: ALLOPURINOL 100 MG TAB PO SCH (09:14)
[2018-06-08] MEDS: levETIRAcetam 500 MG TAB PO SCH (09:14)
[2018-06-08] MEDS: POLYETHYLENE (MIRALAX) 17 GM PACK PO SCH (09:20)
--- NOTE | 2018-06-08 11:44 | Surgery Progress Note ---
Date of Service June 08, 2018 Assessment & Plan (1) Urinary retention with incomplete bladder emptying: plan for home with fajardo (2) Small bowel obstruction: resolved. tolerating diet advancement. Will await bowel movement prior to discharge. Subjective In bathroom getting cleaned up. Feels well but no bowel movement yet despite miralax and dulcolax. No pain. No nausea. Tolerating diet. KUB yesterday showed resolution of SBO. Physical Exam Vital Signs (Past 24 Hours): Last Vital Signs Temp 37.7 C H 06/08/18 07:02 Pulse 84 06/08/18 07:02 Resp 16 06/08/18 07:02 BP 104/61 06/08/18 07:02 Pulse Ox 93 06/08/18 07:02 Gastrointestinal (Abdomen): normal bowel sounds, soft, nontender, no hepatosplenomegaly
[2018-06-08] MEDS ORDERED: SOD PHOSPHATE/SOD BIPHOSPHATE ENEMA 132 ML BTL PR STA (12:09)
--- NOTE | 2018-06-08 12:20 | Discharge Summary ---
Date of Service June 08, 2018 Principal Diagnosis SMALL BOWEL OBSTRUCTION-RESOLVED /URINARY RETENTION /HISTORY OF TESTICULAR CA Discharge Exam GENERAL: No sign of distress, HEENT: Sclera nonicteric, pink-purple bilateral equal reactive to light extraocular muscle intact Normal oral mucosa, neck: No JVD, no thyromegaly, trachea midline Lungs: Clear to auscultate, no wheeze or rales Cardiovascular: Regular S1 and S2, no murmur or gallop, no JVD, no lower ex tremity edema Abdomen: Soft, nontender, bowel sounds active, no hepatosplenomegaly Extremities: No rash or deformity, normal joint, Neuro: No focal neurological deficit, no dysarthria, no facial droop Psych: Alert awake oriented x3: Euthymic Skin: No rash LYMPH NODES: No cervical lymphadenopathy Discharge Data Allergies Allergy/AdvReac Type Severity Reaction Status Date / Time No Known Drug Allergies Allergy Unknown . Verified 04/06/17 08:27 pollen extracts Allergy Unknown SNEEZING Verified 04/06/17 08:27 Consultations 06/05/18 01:48 ED Decision to Admit Stat 06/05/18 01:50 Consult General Surgery Routine 06/05/18 05:14 Consult Case Management - Discharge Planning Routine Ordered Studies 06/05/18 00:21 CT abd pelvis wo con Urgent Hospital Course (1) Small bowel obstruction: Resolved with conservative approach, appreciate input from surgery, patient has been tolerating low residue diet xRAY OF kub 06/07 : resolution of small bowel obstruction , feces in transverse colon ordered for bowel regimen : Miralax/colace abdomen exam benign appreciate input from surgery , plan to discharge home today after bowel movement able to pass gas /no bowel movements yet ordered for fleet enema presented with abdominal pain , Nausea /vomiting possible due to prior hx of testicular malignancy , s.p radiation tx causing adhesion Patient was treated with bowel rest , NG suction , IV fluids -leading to resolution obstruction appreciate input from surgery (2) 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 Nancy Enciso urology and Fredrick Boo, Galloway was discontinued after voiding trial Will discharge patient with Galloway catheter-be changed to leg bag during discharge Follow-up with urology Dr. Enciso in office for voiding trial (4) GERD (gastroesophageal reflux disease): cont PPI CODE STATUS: Full code Disposition: discharge home today updated at bedside Total Time Total Time Spent Total Time Spent (In Minutes): approx 40 mins Total Time Includes: Examination of the Patient, Discharge Planning, Medication Reconciliation and Communication With Other Providers Discharge Plan Discharge Items Patient Disposition: Home - Self-Care Reason For Visit: SBO Discharge Diagnosis: SMALL BOWEL OBSTRUCTION /URINARY RETENTION Discharge Goals: Decrease discomfort Activity: Resume your previous activity Non-emergency contact: Primary Care Provider Call non-emergency contact if: you have any medication questions Follow-up/Referrals: Jim Martell [Primary Care Provider] - 06/18/18 11:05 am Nancy Enciso MD [Physician] - (CLINIC FOLLOW UP WITH VOIDING TRIAL IN A WEEK ) Diet: Heart Healthy Addtl Provider Instructions: FOLLOW UP WITH UROLOGY DR ENCISO FOR VOIDING TRIAL OFFICE WILL CALL YOU WITHIN A WEEK Prescriptions: New tamsulosin 0.4 mg Capsule 0.4 mg PO HS 30 Days Qty: 30 RF: 0 Continued atorvastatin 10 mg tablet 10 mg PO DAILY RF: 0 levetiracetam 500 mg tablet 500 mg PO BID RF: 0 allopurinol 100 mg tablet 100 mg PO BID RF: 0 aspirin 81 mg Tablet,Delayed Release (Dr/Ec) 81 mg PO BID RF: 0 metoprolol tartrate 25 mg tablet 12.5 mg PO Q12 RF: 0 timolol maleate 0.25 % drops 1 drp OPB BID RF: 0 ranitidine HCl 150 mg tablet 150 mg PO DAILY RF: 0 amoxicillin 500 mg capsule 2,000 mg PO UD PRN (Reason: Prophylaxis) RF: 0 fexofenadine [Makenna Allergy] 180 mg Tablet 180 mg PO DAILY RF: 0 polyethylene glycol 3350 [Miralax] 17 gram/dose Powder 17 g PO DAILY PRN (Reason: Constipation) RF: 0 glucosamine-chondroitin [Osteo Bi-Flex] 250-200 mg Tablet 2 tab PO DAILY RF: 0 Stand-Alone Forms: [facility]ung[facility]/Other Patient Handouts: Catheter Indwelling Urinary Dc, Leg Bag Care Dc Discharge Orders: Discharge Order (Routine); Ordered 06/08/18 Ordered By: Brittney Trammell Admission Data Admit Date/Time: 06/05/18 04:09 Attending Provider: Brittney Trammell Admit Provider: Luis Armando Escalante Primary Care Provider: Jim Martell Other Providers: Luis Armando Escalante ; Arsalan Man ; Yudy Roca Service: Surgical Services
== END 2018-06-08 14:50 | disposition home or self-care (01) | DRG 389 ==
LOC: ED 23:58 → SUATTDRO 06-05 04:09 → 3W 06-05 04:09